=== PATIENT | female | born 1940 | race Caucasian/White ===

== ENCOUNTER 2019-07-20 01:14 | Emergency (ER) | payer SELFPAY ==
[~2019-07-20] VITALS: Ht 152.4 cm; Wt 59.0 kg
[2019-07-20 01:20] VITALS: BP 183/97
--- NOTE | 2019-07-20 01:23 | NUR ---
PT AMBULATED TO BED #3
--- NOTE | 2019-07-20 01:27 | NUR ---
PT TAKEN TO BED 2
[2019-07-20] MEDS ORDERED: hydrALAZINE 20 MG/ML VIAL IVP ONE (01:30)
--- NOTE | 2019-07-20 01:35 | NUR ---
79 YO F BIB SON PRESENTS C/O INTERMITTENT DIZZINESS, NAUSEA AND 5/10 RAMSEY X 1 DAY. PER SON, PT TOOK BP AT HOME WITH DAUGHTER'S BP MACHINE AND IT WAS HIGH. DENIES CP, SOB. PT DENIES PREVIOUS MEDICAL HX. DENIES TAKING ANY RX. -- PT AWAKE, A/O X4. CALM, COOPERATIVE. ANSWERS QUESTIONS WITHOUT DIFFICULTY. -- SKIN PINK, WARM, DRY. BREATHING EVEN, UNLABORED. -- AMBULATES WITH ASSIST. HAND IT COMMUNICATIONS MANAGER EQUAL, STRONG. PMH-- DENIES RX-- DENIES
[2019-07-20 01:53] LABS: BASOPHILS % (AUTO) 0.5 % (0.0-2.0); EOSINOPHILS # (AUTO) 0.2 K/uL (0-0.4); EOSINOPHILS % (AUTO) 3.1 % (0.0-4.0); HEMATOCRIT 42.6 % (36-48); HEMOGLOBIN 14.1 g/dL (12.0-16.0); LYMPHOCYTES # (AUTO) 1.6 K/uL (2.5-16.5); LYMPHOCYTES % (AUTO) 31.2 % (20.5-51.1); MEAN CORPUSCULAR HEMOGLOBIN 30 pg (27-31); MEAN CORPUSCULAR HGB CONC 33 g/dL (33-37); MEAN CORPUSCULAR VOLUME 91.3 fL (80-94); MONOCYTES # (AUTO) 0.5 K/uL (0.8-1.0); MONOCYTES % (AUTO) 9.5 % (1.7-9.3); NEUTROPHILS # (AUTO) 2.8 K/uL (1.8-7.7); NEUTROPHILS % (AUTO) 55.7 % (42.2-75.2); PLATELET COUNT (AUTO) 247 K/uL (140-450); RED BLOOD CELL COUNT(AUTO) 4.67 MIL/uL (4.20-5.40); RED CELL DISTRIBUTION WIDTH 14.4 % (11.6-13.7); WHITE BLOOD COUNT (AUTO) 5.1 K/uL (4.8-10.8)
[2019-07-20 02:03] LABS: CARBON DIOXIDE 26.9 mmol/L (21-32); CHLORIDE 104 mmol/L (98-107); CREATININE 0.7 mg/dL (0.6-1.3); GLUCOSE 125 mg/dL (74-106); POTASSIUM 3.9 mmol/L (3.5-5.1); SODIUM SERUM 141 mmol/L (136-145); UREA NITROGEN, BLOOD 13 mg/dL (7-18)
[2019-07-20 02:08] LABS: ALBUMIN 3.6 g/dL (3.4-5.0); ASPARTATE AMINOTRANSFERASE 19 U/L (15-37); CHOL/HDL RATIO 4.9 (1-4.5); TOTAL BILIRUBIN 0.4 mg/dL (0.0-1.0)
[2019-07-20 02:40] VITALS: BP 136/66
--- NOTE | 2019-07-20 02:40 | NUR ---
Patient discharged with v/s stable. Written and verbal after care instructions given and explained. Patient alert, oriented and verbalized understanding of instructions. Ambulatory with steady gait. All questions addressed prior to discharge. ID band removed. Patient advised to follow up with PMD. Rx of Atorvastatin and Lisinopril/HCTZ given. Patient educated on indication of medication including possible reaction and side effects. Opportunity to ask questions provided and answered. Discharged by Dr. Pino.
== END 2019-07-20 02:40 | disposition home or self-care (01) ==
LOC: MED 01:14
DX: I10 Essential (primary) hypertension (principal); E78.5 Hyperlipidemia, unspecified; R42 Dizziness and giddiness
CPT/HCPCS: 36415; 80053; 80061; 83880; 84484; 85025; 96374; 99283; J0360; 93005